=== PATIENT | male | born 1980 | race Caucasian/White ===

== ENCOUNTER 2017-04-27 12:40 | Emergency (ER) | payer OTHER ==
[2017-04-27] MEDS ORDERED: ZOLOFT (12:43)
[2017-04-27] MEDS ORDERED: ALPRAZOLAM (12:43)
[2017-04-27] MEDS ORDERED: MOBIC (12:43)
== END 2017-04-27 13:19 | disposition home or self-care (01) ==
LOC: SED 12:40
DX: S86.211A Strain of muscle(s) and tendon(s) of anterior muscle group at lower leg level, right leg, initial encounter (principal); F17.210 Nicotine dependence, cigarettes, uncomplicated; X58.XXXA Exposure to other specified factors, initial encounter; Y92.9 Unspecified place or not applicable
CPT/HCPCS: 99283